=== PATIENT | male | born 1980 | race African-American/Black ===

== ENCOUNTER 2024-07-04 18:25 | Emergency (ER) | payer SELFPAY ==
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
[2024-07-04 19:06] VITALS: BP 199/103; PULSE 89; RESP 20; TEMP 36.4; O2SAT 99; BMI 36.6
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
--- NOTE | 2024-07-04 19:27 | ECG_ITS ---
Test Reason : CHEST PAIN Blood Pressure : */* mmHG Vent. Rate : 88 BPM Atrial Rate : 88 BPM P-R Int : 126 ms QRS Dur : 100 ms QT Int : 386 ms P-R-T Axes : 44 -20 133 degrees QTcB Int : 467 ms Normal sinus rhythm Possible Left atrial enlargement Left ventricular hypertrophy ( R in aVL , Adrian product ) T wave abnormality, consider lateral ischemia Prolonged QT Abnormal ECG No previous ECGs available Referred By: Glenna Angulo Electronically Signed By: FUNMILAYO ODELL
[2024-07-05 00:59] VITALS: BP 175/86; PULSE 88; RESP 20; O2SAT 99
[2024-07-05 02:34] VITALS: BP 175/86; PULSE 88; RESP 20; TEMP 36.4; O2SAT 99
[2024-07-05] MEDS: Acetaminophen 325 MG TABLET 975 MG PO (02:41)
[2024-07-05] MEDS: Ibuprofen 400 MG TABLET PO (02:41)
[2024-07-05 02:42] VITALS: BP 184/107; PULSE 78; RESP 18; TEMP 36.7; O2SAT 98
== END 2024-07-05 02:44 | disposition home or self-care (01) ==
PROVIDERS: Emergency Provider Emergency Medicine Emergency Medical Services
DX: S49.81XA Other specified injuries of right shoulder and upper arm, initial encounter (principal); S41.101A Unspecified open wound of right upper arm, initial encounter; S42.121A Displaced fracture of acromial process, right shoulder, initial encounter for closed fracture; R07.89 Other chest pain; M25.511 Pain in right shoulder; V03.10XA Pedestrian on foot injured in collision with car, pick-up truck or van in traffic accident, initial encounter; Y93.89 Activity, other specified; Y92.410 Unspecified street and highway as the place of occurrence of the external cause; Y99.8 Other external cause status
CPT/HCPCS: 73030; 73090; 93005; 99283; 99284

== ENCOUNTER → 2024-07-04 19:10 | Outpatient (BNV) | payer SELFPAY | PROVIDERS: Visit Provider Radiology Neuroradiology | DX: M25.511 Pain in right shoulder (principal); M25.521 Pain in right elbow; V03.10XA Pedestrian on foot injured in collision with car, pick-up truck or van in traffic accident, initial encounter | CPT/HCPCS: 73030; 73090 ==

== ENCOUNTER → 2024-07-04 19:27 | Outpatient (BNV) | payer SELFPAY | PROVIDERS: Emergency Provider Emergency Medicine Emergency Medical Services; Visit Provider Internal Medicine | DX: I51.7 Cardiomegaly (principal) | CPT/HCPCS: 93010 ==

== ENCOUNTER 2024-10-30 12:52 | Outpatient (REF) | payer OTHER, SELFPAY | END 2024-10-30 12:53 | disposition home or self-care (01) | LOC: HO.HOSX 12:52 | PROVIDERS: Visit Provider Physician Assistant | DX: Z13.89 Encounter for screening for other disorder (principal) ==